=== PATIENT | male | born 1990 | race Hispanic/Latino ===

== ENCOUNTER 2017-07-13 15:58 | Emergency (ER) | payer BC, OTHER ==
[2017-07-13 15:59] VITALS: BMI 22.1
[2017-07-13 17:00] VITALS: RESP 18; TEMP 98.2; O2SAT 100
[2017-07-13] MEDS ORDERED: Lidocaine 1% Inj (20ml) IJ STA (17:19)
[2017-07-13] MEDS ORDERED: TDAP Vaccine 0.5 mL Syr IM ONE (17:19)
--- NOTE | 2017-07-13 17:19 | ED PDOC ---
Arrival/HPI - General Chief Complaint: Abnormal Skin Integrity Time Seen by Provider: 07/13/17 17:16 Historian: Patient - History of Present Illness Narrative History of Present Illness (Text): 07/13/17 17:16 27 y/o male, no pmh, nkda, c/o lt. hand 3rd digit finger laceration x 2 hour. Pt. stated that he was using the knife at home, accidentally sliced the left finger 3rd digit, bleeding resolved, no numbness or tingling, no difficulty bending or extending, no night sweat, no rash, no numbness or tingling, no other medical ro psychological complaints, last tetanus doesn't remember. Past Medical History - Provider Review Nursing Documentation Reviewed: Yes - Past History Past History: No Previous - Psychiatric Hx Depression: No Hx Emotional Abuse: No Hx Physical Abuse: No Hx Substance Use: No - Past Surgical History Past Surgical History: No Previous - Suicidal Assessment Feels Threatened In Home Enviroment: No Family/Social History - Physician Review Nursing Documentation Reviewed: Yes Family/Social History: Unknown Family HX Smoking Status: Never Smoked Hx Alcohol Use: No Hx Substance Use: No Allergies/Home Meds Allergies/Adverse Reactions: Allergies No Known Allergies Allergy (Verified 08/15/12 14:37) Review of Systems - Review of Systems Constitutional: absent: Fatigue, Fevers Eyes: absent: Vision Changes ENT: absent: Hearing Changes Respiratory: absent: SOB, Cough Cardiovascular: absent: Chest Pain Gastrointestinal: absent: Abdominal Pain, Nausea, Vomiting Musculoskeletal: absent: Arthralgias, Back Pain Skin: Laceration. absent: Rash, Pruritis, Skin Lesions Neurological: absent: Headache, Dizziness Psychiatric: absent: Anxiety, Depression Physical Exam Vital Signs Reviewed: Yes Vital Signs Temp Pulse Resp BP Pulse Ox 07/13/17 16:56 98.2 F 62 18 139/78 100 Temperature: Afebrile Blood Pressure: Normal Pulse: Regular Respiratory Rate: Normal Appearance: Positive for: Well-Appearing, Non-Toxic, Comfortable Pain Distress: Mild Mental Status: Positive for: Alert and Oriented X 3 - Systems Exam Head: Present: Atraumatic, Normocephalic Pupils: Present: PERRL Extroacular Muscles: Present: EOMI Conjunctiva: Present: Normal Mouth: Present: Moist Mucous Membranes Neck: Present: Normal Range of Motion Respiratory/Chest: Present: Clear to Auscultation, Good Air Exchange. No: Respiratory Distress, Accessory Muscle Use Cardiovascular: Present: Regular Rate and Rhythm, Normal S1, S2. No: Murmurs Abdomen: Present: Normal Bowel Sounds. No: Tenderness, Distention, Peritoneal Signs Back: Present: Normal Inspection Upper Extremity: Present: Normal Inspection, Other (Lt. hand 3rd digit: visible approx. 1.25cm superficial to intermediate depth laceration, FROM without limitation, sensation intact, motor 5/5, +radial pulse, capillary refill< 2 seconds, neurovascular intact. ). No: Cyanosis, Edema Lower Extremity: Present: Normal Inspection. No: Edema Neurological: Present: GCS=15, CN II-XII Intact, Speech Normal Skin: Present: Warm, Dry, Normal Color. No: Rashes Psychiatric: Present: Alert, Oriented x 3, Normal Insight, Normal Concentration Medical Decision Making ED Course and Treatment: 07/13/17 17:24 -tdap -sensation intact, motor 5/5, wound irrigated with normal saline 1000cc, clean with betadine, 1% lidocaine digital block on the lt. hand 3rd digit with approx. 2cc, 5-0 nylon made 4 sutures, hemostasis obtained, bacitracin and gauze dressing, sensation intact, motor 5/5, less than 5cc of blood loss, procedure time 15 minutes. 07/13/17 18:23 -Discharge home with keflex, motrin, keep the dressing dry and clean for 2 days , sutures need to be removed by day 11-12, return to the ER for any new or worsening signs or symptoms. - Medication Orders Current Medication Orders: Discontinued Medications Lidocaine HCl (Lidocaine 1% (20ml)) 2 ml IJ STAT STA Stop: 07/13/17 17:20 Last Admin: 07/13/17 17:29 Dose: Not Given Non-Admin Reason: Agitation Tetanus/Reduced Diphtheria/Acell Pertussis (Boostrix Vaccine Inj) 0.5 ml IM .ONCE ONE Stop: 07/13/17 17:20 Last Admin: 07/13/17 17:29 Dose: 0.5 ml [facility] Immunization Data Document 07/13/17 17:29 [facility] (Rec: 07/13/17 17:29 [id number] Immunization Data Vaccine Information Sheet Given No - PA / JEWELRY POLISHER / Resident Statement MD/DO has reviewed & agrees with the documentation as recorded. Disposition/Present on Arrival - Present on Arrival Any Indicators Present on Arrival: No History of DVT/PE: No History of Uncontrolled Diabetes: No Urinary Catheter: No History of Decub. Ulcer: No History Surgical Site Infection Following: None - Disposition Have Diagnosis and Disposition been Completed?: Yes Diagnosis: Finger laceration Disposition: HOME/ ROUTINE Disposition Time: 18:23 Patient Plan: Discharge Patient Problems: Current Active Problems Problem Status Onset Finger laceration Acute Condition: GOOD Discharge Instructions (ExitCare): Care For Your Stitches (ED) Print Language: YI Additional Instructions: -Discharge home with keflex, motrin, keep the dressing dry and clean for 2 days , sutures need to be removed by day 11-12, return to the ER for any new or worsening signs or symptoms. Prescriptions: Cephalexin [Keflex] 500 mg PO TID #30 capsule Ibuprofen [Motrin] 600 mg PO QID #30 tab Referrals: Naun Brantley MD [Staff Provider] - Follow up with primary [facility] [place] [Outside] - Follow up with primary Forms: [employer] (Burmese), WORK NOTE
[2017-07-13 18:35] VITALS: BP 117/68; PULSE 68
== END 2017-07-13 18:34 | disposition home or self-care (01) ==
LOC: ED 15:58
DX: S61.213A Laceration without foreign body of left middle finger without damage to nail, initial encounter (principal); W26.0XXA Contact with knife, initial encounter; Y92.009 Unspecified place in unspecified non-institutional (private) residence as the place of occurrence of the external cause; Z23 Encounter for immunization